=== PATIENT | female | born 1940 | race Caucasian/White ===

== ENCOUNTER 2016-08-13 12:44 | Observation (INO) | payer MEDICARE, OTHER ==
[~2016-08-13] VITALS: Ht 165.1 cm; Wt 67.6 kg
[~2016-08-13 12:44] MED LIST: ASPIRIN CHEWABL81 MG PO; DONEPEZIL HCL10 MG PO; JANUVIA100 MG PO; LIPITOR TAB 2020 MG PO; METOPROLOL SUCC25 MG PO; METOPROLOL TART25 MG PO; NAMENDA XR14 MG PO; NEOMYC-POLYM-DEX5 ML OP; OMNICEF 300 MG300 MG PO; RYTHMOL TAB 15150 MG PO
[2016-08-13 13:51] LABS: HEMOGLOBIN 13.5 gm/dl (12.3-15.3); RED BLOOD COUNT 4.68 M/UL (4.00-5.10)
[2016-08-13] MEDS ORDERED: AMIODARONE HCL200 MG PO (21:24)
[2016-08-14 05:53] LABS: HEMOGLOBIN 12.7 gm/dl (12.3-15.3); RED BLOOD COUNT 4.44 M/UL (4.00-5.10)
[2016-08-14 05:54] LABS: WHITE BLOOD COUNT 8.7 K/UL (4.5-11.0)
[2016-08-14] MEDS ORDERED: ELIQUIS5 MG PO (06:43)
[2016-08-14] MEDS ORDERED: BACTRIM DS TAB1 EACH PO (13:55)
[2016-08-14] MEDS ORDERED: ANUSOL HC SUPP1 SUPP PR (13:56)
[2016-08-14] MEDS ORDERED: TERCONAZOLE80 MG VG (13:57)
[2016-08-14] MEDS ORDERED: TYLENOL 325MG325 MG PO (13:58)
== END 2016-08-14 15:05 | disposition home or self-care (01) ==
LOC: ER1 12:44 → ZEROF 18:35 → MED SURG 4 20:52
PROVIDERS: Emergency Medicine; ADMIT Family Medicine
DX: N39.0 Urinary tract infection, site not specified (principal); R11.2 Nausea with vomiting, unspecified; I48.91 Unspecified atrial fibrillation; E11.9 Type 2 diabetes mellitus without complications; I10 Essential (primary) hypertension; F03.90 Unspecified dementia, unspecified severity, without behavioral disturbance, psychotic disturbance, mood disturbance, and anxiety; Z85.528 Personal history of other malignant neoplasm of kidney; Z82.49 Family history of ischemic heart disease and other diseases of the circulatory system; Z88.1 Allergy status to other antibiotic agents; Z79.01 Long term (current) use of anticoagulants; Z79.84 Long term (current) use of oral hypoglycemic drugs; Z79.899 Other long term (current) drug therapy; Z95.0 Presence of cardiac pacemaker
CPT/HCPCS: 36415; 74022; 80048; 80053; 81001; 82962; 83605; 83690; 84484; 85025; 85027; 87077; 87086; 87186; 93005; 96361; 96374; 96375; 99285; G0378; J0696; J2405; J7050

== ENCOUNTER 2016-08-26 12:43 | Inpatient (IN) | payer MEDICARE, OTHER ==
[~2016-08-26] VITALS: Ht 165.1 cm; Wt 69.9 kg
[~2016-08-26 12:43] MED LIST changes: +AMIODARONE HCL200 MG PO; +ANUSOL HC SUPP1 SUPP PR; +BACTRIM DS TAB1 EACH PO; +ELIQUIS5 MG PO; +TERCONAZOLE80 MG VG; +TYLENOL 325MG325 MG PO
[2016-08-26 14:15] LABS: HEMOGLOBIN 14.4 gm/dl (12.3-15.3)
[2016-08-26] MEDS ORDERED: LINZESS290 MCG PO (19:24)
[2016-08-27 07:20] LABS: HEMOGLOBIN 12.5 gm/dl (12.3-15.3)
[2016-08-27 07:21] LABS: RED BLOOD COUNT 4.34 M/UL (4.00-5.10); WHITE BLOOD COUNT 7.2 K/UL (4.5-11.0)
[2016-08-28 04:26] LABS: HEMOGLOBIN 12.5 gm/dl (12.3-15.3); RED BLOOD COUNT 4.28 M/UL (4.00-5.10); WHITE BLOOD COUNT 5.8 K/UL (4.5-11.0)
[2016-08-29 04:29] LABS: BUN/CREATININE RATIO 10 (0-10)
[2016-08-29] MEDS ORDERED: FLAGYL500 MG PO (15:54)
== END 2016-08-29 16:31 | disposition home or self-care (01) | DRG 872 ==
LOC: ER1 12:43 → ZEROF 16:00 → MED SURG 4 18:28
PROVIDERS: Emergency Medicine; ADMIT Internal Medicine
DX: A41.9 Sepsis, unspecified organism (principal); N17.9 Acute kidney failure, unspecified; K57.32 Diverticulitis of large intestine without perforation or abscess without bleeding; E87.2 Acidosis; E86.0 Dehydration; I48.91 Unspecified atrial fibrillation; I10 Essential (primary) hypertension; E11.9 Type 2 diabetes mellitus without complications; F01.50 Vascular dementia, unspecified severity, without behavioral disturbance, psychotic disturbance, mood disturbance, and anxiety; R11.2 Nausea with vomiting, unspecified; T46.2X5A Adverse effect of other antidysrhythmic drugs, initial encounter; E78.00 Pure hypercholesterolemia, unspecified; K59.09 Other constipation; M19.90 Unspecified osteoarthritis, unspecified site; M23.8X2 Other internal derangements of left knee; M23.8X1 Other internal derangements of right knee; Z95.0 Presence of cardiac pacemaker; Z85.528 Personal history of other malignant neoplasm of kidney; Z79.01 Long term (current) use of anticoagulants; Z79.84 Long term (current) use of oral hypoglycemic drugs; Z79.899 Other long term (current) drug therapy; Z88.3 Allergy status to other anti-infective agents; Z88.8 Allergy status to other drugs, medicaments and biological substances; Z90.5 Acquired absence of kidney; Z98.890 Other specified postprocedural states; Z82.3 Family history of stroke; Z82.49 Family history of ischemic heart disease and other diseases of the circulatory system; Z83.3 Family history of diabetes mellitus
CPT/HCPCS: 36415; 80048; 80053; 81001; 82962; 83605; 83690; 84484; 85025; 93005; 96365; 96375; 96376; 99285; C9113; G0378; J1335; J2270; J2405; J2550; J7030; J7050; Q0164

== ENCOUNTER → 2016-12-06 | Outpatient (CLI) | payer MEDICARE, OTHER ==
[~2016-12-06] MED LIST changes: +FLAGYL500 MG PO; +LINZESS290 MCG PO
== END ==
LOC: LAB 12:26
DX: R31.1 Benign essential microscopic hematuria (principal)
CPT/HCPCS: 87086

== ENCOUNTER → 2021-10-18 | Outpatient (CLI) | payer MEDICARE, OTHER | LOC: LAB 14:32 | DX: N30.20 Other chronic cystitis without hematuria (principal); K59.00 Constipation, unspecified | CPT/HCPCS: 74018; 87077; 87086; 87186 ==

== ENCOUNTER → 2021-12-08 | Outpatient (CLI) | payer MEDICARE, OTHER | LOC: LAB 14:20 | DX: N30.20 Other chronic cystitis without hematuria (principal) | CPT/HCPCS: 87086 ==

== ENCOUNTER → 2022-01-14 | Outpatient (CLI) | payer MEDICARE, OTHER | LOC: LAB 15:05 | DX: N30.20 Other chronic cystitis without hematuria (principal) | CPT/HCPCS: 87077; 87086; 87186; G0463 ==

== ENCOUNTER → 2022-02-16 | Outpatient (CLI) | payer MEDICARE, OTHER | LOC: LAB 15:18 | PROVIDERS: Urology | DX: N30.20 Other chronic cystitis without hematuria (principal); K59.00 Constipation, unspecified | CPT/HCPCS: 36415; 74018; 80053; 87077; 87086; 87186 ==